=== PATIENT | female | born 2005 | race African-American/Black ===

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

== ENCOUNTER 2024-06-01 12:17 | Emergency (ER) | payer OTHER, SELFPAY ==
[2024-06-01 12:29] VITALS: BP 143/71; PULSE 81; RESP 16; TEMP 36.6; O2SAT 100
--- NOTE | 2024-06-01 12:39 | ED_ITS ---
HPI - URI/Sore Throat General Chief Complaint: Upper Respiratory Infection Stated Complaint: cough,runny nose,fever Time Seen by Provider: 06/01/24 12:50 Source: patient, RN notes reviewed and old records reviewed Mode of arrival: ambulatory Limitations: no limitations History of Present Illness HPI Narrative: 19year old female who presents to [facility] with complaints of feeling ill since Wednesday. She has had nasal drainage, dry cough, irritated throat,headache, fevers up to 101.2F. Patient reports that she has been taking Tylenol for her fevers and did take dose around 0500 today. MD elicited complaint: fever, cough, rhinorrhea and nasal congestion Onset (ago): day(s) (day 4) Severity: moderate Able to tolerate fluids by mouth: Yes Treatments prior to arrival: acetaminophen Related Data Allergies Allergy/AdvReac Type Severity Reaction Status Date / Time No Known Allergies Allergy Verified 06/01/24 12:21 Review of Systems Review of Systems: CONSTITUTIONAL: Reports malaise, chills, sweats, fever with fever breaking last night EYES: Denies visual changes, redness, or discharge. ENT: Reports rhinorrhea, congestion, no sinus pain, no otalgia and positive for irritated throat. CARDIOVASCULAR: Denies chest pain, palpitations, or edema. RESPIRATORY: Reports cough.? Denies dyspnea. GASTROINTESTINAL: Denies abdominal pain, nausea, vomiting, diarrhea SKIN: Denies rash or itching. MUSCULOSKELETAL: Denies myalgia. NEUROLOGIC: reports headache. All systems reviewed & are unremarkable except as noted in HPI and below PMFSH Past Medical History Medical History (Updated 06/03/24 @ 10:21 by Alysha Velez NP) Pneumonia Dysmenorrhea Surgical History Surgical History (Updated 06/03/24 @ 10:21 by Alysha Velez NP) History of tonsillectomy and adenoidectomy Family History Family History Father Hypertension Mother Breast cancer Social History Social History Smoking status: Never smoker Second hand tobacco smoke exposure: No Alcohol intake: never Substance use: never Substance use type: does not use Do You Feel Safe in your Home?: Yes Lack of Transportation: No Lack of Food: Sometimes True Current Housing: I Have Housing Concerned About Future Housing: No Difficulty Paying Gas/Electric Bills: No Difficulty Paying for Meds: No Currently Unemployed: No Education: High School Diploma/GED Difficulty w/ Childcare or Family Care: No Living arrangements: with family Occupation/Education: occupation Additional occupation/education comments: college Gender identity (if verbalized by the patient): Female Sexual Orientation (if Verbalized by the Patient): Straight or Heterosexual Comments At time of signature, agree with nursing past medical, surgical, social and family history. There is no relevant family history pertinent to the presenting complaint Exam Narrative: GENERAL: Well-appearing, well-nourished, and in no acute distress. HEAD: Normocephalic EYES: PERRLA, conjunctivae clear ENT: Nares clear, turbinates edematous and erythematous, clear discharge. Mucous membranes moist. TM pearly rosa with dull light reflex bilaterally; no tragal tenderness. Oropharynx erythematous without lesions. Tonsils not present and throat without exudate, no drooling, no hoarseness, no trismus, uvula midline.post nasal drainage NECK: Supple. No lymphadenopathy CHEST: Clear to auscultation, breath sounds equal. No wheezing, rhonchi, rales, or stridor. No respiratory distress, speaks in full sentences.dry cough noted SAO2 100% on room air HEART: Regular rate and rhythm. No murmur heard. SKIN: Warm, dry, no rash. NEURO: Alert and oriented x3. PSYCH: Normal mood and affect Course Course Emergency Course: Patient is aware of diagnosis, understands and agrees to treatment plan.? A nticipatory guidance given.? Patient agrees to follow-up as directed and is aware of reasons to seek care at the emergency department. Portions of this record may have been created with voice recognition software Level of Care: Express Care Visit Vital Signs Vital signs: Vital Signs Temperature 36.6 C 06/01/24 12:29 Pulse Rate 81 06/01/24 12:29 Respiratory Rate 16 06/01/24 12:29 Blood Pressure 143/71 H 06/01/24 12:29 Pulse Oximetry 100 06/01/24 12:29 Oxygen Delivery Room Air 06/01/24 12:29 Temperature 36.6 C 06/01/24 12:29 Pulse Rate 81 06/01/24 12:29 Respiratory Rate 16 06/01/24 12:29 Blood Pressure 143/71 H 06/01/24 12:29 Pulse Oximetry 100 06/01/24 12:29 Oxygen Delivery Room Air 06/01/24 12:29 Reviewed MDM - URI/Sore Throat MDM Narrative Medical decision making narrative: Differential diagnosis considered: Harris virus, strep pharyngitis, allergic rhinitis, upper respiratory tract infection, sinusitis, rhinosinusitis, nasopharyngitis. viral pharyngitis, otitis media, otitis externa, pneumonia, bronchitis, viral cough syndrome, viral syndrome, and influenza.? Exam findings show no acute concerns or changes; patient is non-toxic appearing and is in no distress.? Patient is appropriate for outpatient treatment and follow-up. Differential Diagnosis Differential diagnosis: Likely upper respiratory infection, sinusitis, viral infection, influenza and other (COVID, acute cough) Medical Records Attestation: I reviewed the patient's medical records. Lab Data Attestation: I reviewed the patient's lab results. Lab results narrative: Influenza A positive, influenza B negative, COVID antigen negative Labs: Lab Results 06/01/24 Range/Units 12:32 POC Influenza A Ag Positive (Negative) POC Influenza B Ag Negative (Negative) POC SARS CoV-2 Ag Negative (Negative) reviewed Critical Care Time Critical Care Time Critical Care Time: No Discharge Plan Discharge Clinical Impression: Influenza A Patient Disposition: Home, Self-Care Condition: Stable Instructions: Influenza (ED), Acute Cough (ED) Additional Instructions: Increase fluids especially juices and water [id number]-akh-[id number] cough and cold medicine of your choice for your symptoms Zyrtec Claritin or Pebbles daily Delsym or Robitussin cough syrup Tylenol or ibuprofen for any fever pain heat to the face 20-30 minutes 4-6 times a day for pain Salt water gargles, throat lozenges or throat sprays as desired You must be fever free for 24 hours without use of Tylenol or ibuprofen before you can return to being around others If your symptoms persist, change or worsen significantly before you can contact your personal physician then please, without delay, go to the emergency department for further evaluation. Follow-up with PCP in 7-10 days or sooner if needed Follow up with PCP soon in regards to your blood pressure which is elevated above threshold for referral. Blood pressure above 120/80 may indicate pre- hypertension. 143/71 Patient Language: Dutch Prescriptions: No Action norethindrone ac-eth estradiol [Loulou] 1.5-30 mg-mcg tablet 1 tablet PO DAILY Qty: 112 5RF Rx Instructions: take in a continuous manner to skip cycles Follow-up/Referrals: Luis Eduardo Valdez MD [Primary Care Provider] - Time of Disposition: 13:14 Quality [place] Coma Scale Eyes: Open Verbal: Oriented and Alert Motor: Follows Commands [place] Coma Total Score: 15
[2024-06-01 12:52] LABS: EDCOVIDSCREEN Negative (Negative); EDINFLUASCREEN Positive (Negative); EDINFLUBSCREEN Negative (Negative)
== END 2024-06-01 13:20 | disposition home or self-care (01) ==
PROVIDERS: Emergency Provider Registered Nurse; PCP Family Medicine Adolescent Medicine
DX: J10.1 Influenza due to other identified influenza virus with other respiratory manifestations (principal); Z20.822 Contact with and (suspected) exposure to COVID-19
CPT/HCPCS: 87426; 87804; 99212; G0463